=== PATIENT | male | born 1960 | race Caucasian/White ===

== ENCOUNTER 2021-10-26 16:36 | Emergency (ER) | payer BC ==
[~2021-10-26] VITALS: Ht 175.3 cm; Wt 113.2 kg
[2021-10-26 16:43] VITALS: BP 148/90
== END 2021-10-26 17:58 | disposition home or self-care (01) ==
LOC: ER 16:37
DX: S46.311A Strain of muscle, fascia and tendon of triceps, right arm, initial encounter (principal); X58.XXXA Exposure to other specified factors, initial encounter; Y93.89 Activity, other specified; Y92.89 Other specified places as the place of occurrence of the external cause; Y99.8 Other external cause status
CPT/HCPCS: 99282